=== PATIENT | male | born 1990 | race Hispanic/Latino ===

== ENCOUNTER 2018-09-30 12:32 | Emergency (ER) | payer OTHER ==
[~2018-09-30] VITALS: Ht 168.9 cm; Wt 98.9 kg
--- NOTE | 2018-09-30 13:48 | Diagnostic Imaging Report ---
Exam: Elbow 3 views History: Pain Comparison: None. Findings: No fracture or malalignment. Joint spaces preserved. Mild olecranon bursitis. Impression: No acute osseous abnormality Signed by: Dr. Ronald Mobley M.D. on 09/30/2018 1:45 PM
[2018-09-30 14:13] VITALS: BP 138/83
== END 2018-09-30 14:12 | disposition home or self-care (01) ==
LOC: ER 12:32
DX: S50.02XA Contusion of left elbow, initial encounter (principal); S50.312A Abrasion of left elbow, initial encounter; M70.22 Olecranon bursitis, left elbow; T14.90XA Injury, unspecified, initial encounter; Y99.0 Civilian activity done for income or pay
CPT/HCPCS: 99283